=== PATIENT | male | born 1970 | race Caucasian/White ===

== ENCOUNTER 2018-01-21 19:55 | Emergency (ER) | payer SELFPAY ==
[2018-01-21 19:55] VITALS: BMI 31.1
--- NOTE | 2018-01-21 21:07 | C.PDOC ---
History Of Present Illness Patient comes in complaining of chronic crampy abdominal discomfort, with associated soft bowel movement x 2 today. Patient reports he is concerned due to occasional lethargy and blurry vision. He was previously diagnosed with pre- diabetes; currently denies any significant weight changes. Time Seen by Provider: 01/21/18 20:50 Chief Complaint (Nursing): Abdominal Pain History Per: Patient History/Exam Limitations: no limitations Onset/Duration Of Symptoms: Days Current Symptoms Are (Timing): Still Present Location Of Pain/Discomfort: Diffuse Quality Of Discomfort: Cramping Past Medical History Reviewed: Historical Data, Nursing Documentation, Vital Signs Vital Signs: Last Vital Signs Temp 97.8 F 01/21/18 20:01 Pulse 65 01/21/18 20:01 Resp 19 01/21/18 20:01 BP 157/93 H 01/21/18 20:01 Pulse Ox 97 01/21/18 20:01 - Medical History PMH: Gall Bladder Disease (2006), Pneumonia Surgical History: Cholecystectomy (2006) Family History: States: No Known Family Hx - Social History Hx Tobacco Use: No Hx Alcohol Use: Yes Hx Substance Use: No - Immunization History Hx Tetanus Toxoid Vaccination: No Hx Influenza Vaccination: No Hx Pneumococcal Vaccination: No Review Of Systems Except As Marked, All Systems Reviewed And Found Negative. Constitutional: Negative for: Fever, Chills Cardiovascular: Negative for: Chest Pain Respiratory: Negative for: Shortness of Breath Gastrointestinal: Positive for: Abdominal Pain, Other (soft stools). Negative for: Nausea, Vomiting, Diarrhea Physical Exam - Physical Exam Appears: Non-toxic, No Acute Distress, Other (morbidly obese) Skin: Warm, Dry Head: Atraumatic, Normacephalic Eye(s): bilateral: Normal Inspection Neck: Normal ROM, Supple Chest: Symmetrical Cardiovascular: Rhythm Regular Respiratory: Normal Breath Sounds Gastrointestinal/Abdominal: Soft, No Mass, No Guarding, No Rebound, Other (intermittently dull and tympanic to percussion) Back: Normal Inspection Extremity: Normal ROM Neurological/Psych: Oriented x3 ED Course And Treatment O2 Sat by Pulse Oximetry: 97 (RA) Pulse Ox Interpretation: Normal Medical Decision Making Medical Decision Making: FS 106 no sig s/s of DM many prior ED evals anxious Disposition Doctor Will See Patient In The: Office Counseled Patient/Family Regarding: Studies Performed, Diagnosis - Disposition Referrals: Carina Jones MD [Medical Doctor] - Disposition: HOME/ ROUTINE Disposition Time: 21:07 Condition: GOOD Additional Instructions: kristyn un purgante y re-evalua gordillo molestia del abdomen Glucosa hoy 106, NO esta en el rango elevado de diabetes. Sigue cambios de dieta y ejercisio Sigue con gordillo medico Instructions: Gas and Bloating (ED) Forms: INPHI ([place]er) Print Language: HEBREW - Clinical Impression Clinical Impression: Abdominal colic - Scribe Statement The provider has reviewed the documentation as recorded by the Scribe Sondra Casillas Provider Attestation: All medical record entries made by the Scribe were at my direction and personally dictated by me. I have reviewed the chart and agree that the record accurately reflects my personal performance of the history, physical exam, medical decision making, and the department course for this patient. I have also personally directed, reviewed, and agree with the discharge instructions and disposition.
[2018-01-21 21:12] LABS: URINE AMORPHOUS SEDIMENT FEW /ul (<OCC); URINE BILIRUBIN NEGATIVE (NEGATIVE); URINE BLOOD NEGATIVE (NEGATIVE); URINE CLARITY Hazy (Clear); URINE COLOR Yellow (YELLOW); URINE GLUCOSE (UA) NORMAL (Normal); URINE LEUKOCYTE ESTERASE NEG Leu/uL (Negative); URINE PROTEIN NEGATIVE (NEGATIVE)
[2018-01-21 21:23] VITALS: BP 135/81; PULSE 68; RESP 18; TEMP 98.5
[2018-01-21 21:47] VITALS: O2SAT 97
== END 2018-01-21 21:23 | disposition home or self-care (01) ==
LOC: C.ER 19:55
DX: R10.84 Generalized abdominal pain (principal)